=== PATIENT | male | born 1950 | race African-American/Black ===

== ENCOUNTER 2020-09-07 12:58 | Inpatient (IN) ==
[2020-09-07 14:51] LABS: Basophils # 0.1 10*3/uL (0.0-0.2); Basophils % 0.5 % (0.0-0.8); Eosinophils # 0.4 10*3/uL (0.0-0.87); Eosinophils % 1.8 % (0.00-10.9); Hematocrit 26.2 VOL% (42.0-52.0); Immature Granulocytes % 0.9 %; Immature Granulocytes Absolute 0.18 #; Lymphocytes # 2.9 10*3/uL (1.4-4.0); Lymphocytes % 14.5 % (21.2-54.2); Mean Corpuscular HGB Conc 30.5 GM/DL (32-36); Mean Corpuscular Volume 85.3 FL (87-102); Mean Platelet Volume 9.6 FL (9.6-12.0); Monocytes % 10.9 % (1.7-12.7); Neutrophils % 71.4 % (38.7-73.9); Platelet Count 497 T/CUMM (130-400); Red Blood Count 3.07 MC/CUMM (3.8-5.5); Red Cell Distribution Width 21.7 % (9.3-17.3); White Blood Count 19.8 T/CUMM (4-12)
[2020-09-07 14:58] LABS: Bacteria,Urine Many /HPF (Few); Bilirubin,Urine Negative (Negative); Blood, Urine Large mg/dL (Negative); Glucose,Urine (UA) 150 mg/dL (Negative); Ketones,Urine Negative (Negative); Mucus,Urine Many /LPF (Occasional); Nitrite,Urine Negative (Negative); Protein,Urine 100 MG/DL; RBC,Urine 68 /HPF (0-4); Urine Appearance CLOUDY (Clear); Urine Color Red (Yellow); Urine Specific Gravity 1.009 (1.001-1.035); Urine Urobilinogen < 2.0 EU/DL (0.2-1.0); WBC,Urine 390 /HPF (0-6)
[2020-09-07 15:00] LABS: PT Patient Result 10.5 SECS (9.8-11.9)
[2020-09-07] MEDS ORDERED: cefTRIAXone 1,000 MG in SODIUM CHLORIDE 0.9% 100 ML IV STA (15:09)
[2020-09-07 15:10] LABS: Alanine Aminotransferase 19 U/L (16-61); Albumin 2.5 G/DL (3.4-5.0); Alkaline Phosphatase 106 U/L (45-117); Aspartate Amino Transferase 16 U/L (0-37); Bilirubin,Total < 0.39 MG/DL (0.2-1.0); Blood Urea Nitrogen 18 MG/DL (7-18); Calcium 8.2 MG/DL (8.5-10.1); Carbon Dioxide 27 MMOL/L (21-32); Estimated Glom Filtration Rate 97 ML/MIN; Glucose 167 MG/DL (74-106); Osmolality,Calculated 280.7 MOS/KG (273-304); Potassium 4.3 MMOL/L (3.5-5.1); Sodium 138 MMOL/L (136-145); Total Protein 7.3 G/DL (6.4-8.3)
[2020-09-07 15:17] LABS: Anisocytosis 1+; Hypochromasia 1+; Lymphocytes 18 % (20-55); Platelet Estimate Adequate; Segmented Neutrophils 75 % (50-85); Total Cells Counted 100
[2020-09-07] MEDS ORDERED: SODIUM CHLORIDE 0.9% 1,350 ML IV ONE (15:29)
[2020-09-07] MEDS ORDERED: PIPERACILLIN/TAZOBACTAM 3,375 MG VIAL IV ONE (15:40)
[2020-09-07] MEDS ORDERED: SODIUM CHLORIDE 0.9% 100 ML IV ONE (15:40)
[2020-09-07] MEDS ORDERED: ACETAMINOPHEN 325 MG TABLET PO PRN ×2 (15:43)
[2020-09-07] MEDS ORDERED: LACTULOSE 20 GM/30 ML UDCUP PO PRN (15:43)
[2020-09-07] MEDS ORDERED: ONDANSETRON 4 MG/2 ML VIAL IV PRN (15:43)
[2020-09-07] MEDS ORDERED: SIMETHICONE CHEW 125 MG TABLET PO PRN (15:43)
[2020-09-07] MEDS ORDERED: hydrALAZINE 20 MG/1 ML VIAL IV PRN (15:43)
[2020-09-07] MEDS ORDERED: NICOTINE 21 MG/24 HR PATCH TRANSDERM PRN (15:43)
[2020-09-07] MEDS ORDERED: GLUCAGON 1 MG VIAL IM PRN ×2 (15:43→16:10)
[2020-09-07] MEDS ORDERED: ZALEPLON 5 MG CAPSULE PO PRN (15:43)
[2020-09-07] MEDS ORDERED: traZODone 50 MG TABLET PO PRN (15:43)
[2020-09-07] MEDS ORDERED: BISACODYL 5 MG TABLET PO PRN (15:43)
[2020-09-07] MEDS ORDERED: diphenhydrAMINE CAP 25 MG CAPSULE PO PRN (15:43)
[2020-09-07] MEDS ORDERED: MAGNESIUM SULF RIDER 4 GM in PREMIX 1 EACH IV PRN (15:43)
[2020-09-07] MEDS ORDERED: DOCUSATE SODIUM 100 MG CAPSULE PO PRN (15:43)
[2020-09-07] MEDS ORDERED: CALCIUM CARBONATE CHEW 500 MG TABLET PO PRN (15:43)
[2020-09-07] MEDS ORDERED: guaiFENesin/DM ER 600-30 MG TABLET PO PRN (15:43)
[2020-09-07] MEDS ORDERED: ALUMINUM/MAGNES/SIMETH MAX STR 30 ML UDCUP PO PRN (15:43)
[2020-09-07] MEDS ORDERED: MAGNESIUM SULF RIDER 2 GM in PREMIX 1 EACH IV PRN (15:43)
[2020-09-07] MEDS ORDERED: MORPHINE 4 MG/1 ML VIAL IV PRN (15:43)
[2020-09-07] MEDS ORDERED: DEXTROSE 50% 25 GM/50 ML VIAL IV PRN ×2 (15:43→16:10)
[2020-09-07 15:50] LABS: Carcinoembryonic Antigen < 0.5 NG/ML (0.0-5.0); Prostate Specific Antigen Diag 3.8 NG/ML (0-4)
[2020-09-07] MEDS: PIPERACILLIN/TAZOBACTAM 3,375 MG in SODIUM CHLORIDE 0.9% 100 ML IV SCH ×2 (15:56→23:27)
[2020-09-07 16:13] LABS: % Iron Saturation 7.7 % (18-50); Ferritin 42.3 ng/ml (26-388)
[2020-09-07 16:17] LABS: Barbiturates Screen,Urine Negative (Negative); Benzodiazepines Screen,Urine Negative (Negative); Cannabinoid Screen,Urine Negative (Negative); Opiate Screen,Urine Negative (Negative); Phencyclidine Screen,Urine Negative (Negative)
[2020-09-07 16:22] LABS: Folate 13.3 NG/ML (5.4-24.0)
[2020-09-07] MEDS: SODIUM CHLORIDE 0.9% 1,000 ML IV SCH (23:27)
[2020-09-08 06:12] LABS: Albumin 1.9 G/DL (3.4-5.0); Bilirubin,Total 0.4 MG/DL (0.2-1.0); Calcium 7.8 MG/DL (8.5-10.1); Potassium 3.9 MMOL/L (3.5-5.1); Total Protein 6.6 G/DL (6.4-8.3)
[2020-09-08 06:15] LABS: Risk Ratio 2.09
[2020-09-08] MEDS: INSULIN LISPRO 100 UNIT/ML SUBCUT SCH ×4 (07:27→17:57)
[2020-09-08 08:08] LABS: Basophils # 0.1 10*3/uL (0.0-0.2); Basophils % 0.5 % (0.0-0.8); Eosinophils # 0.1 10*3/uL (0.0-0.87); Eosinophils % 0.5 % (0.00-10.9); Hematocrit 21.8 VOL% (42.0-52.0); Immature Granulocytes % 0.7 %; Immature Granulocytes Absolute 0.15 #; Lymphocytes # 1.9 10*3/uL (1.4-4.0); Lymphocytes % 8.5 % (21.2-54.2); Mean Corpuscular HGB Conc 31.2 GM/DL (32-36); Mean Corpuscular Volume 84.2 FL (87-102); Monocytes % 9.2 % (1.7-12.7); Neutrophils % 80.6 % (38.7-73.9); Platelet Count 439 T/CUMM (130-400); Red Blood Count 2.59 MC/CUMM (3.8-5.5); Red Cell Distribution Width 22.2 % (9.3-17.3)
[2020-09-08 08:09] LABS: Hemoglobin 6.8 GM/DL (14.0-18.0)
[2020-09-08 08:24] LABS: Hypochromasia 2+; Lymphocytes 8 % (20-55); Microcytosis 1+; Platelet Estimate Increased; Segmented Neutrophils 86 % (50-85); Total Cells Counted 100
[2020-09-08] MEDS: PANTOPRAZOLE 40 MG TABLET PO SCH (09:42)
[2020-09-08] MEDS: PIPERACILLIN/TAZOBACTAM 3,375 MG in SODIUM CHLORIDE 0.9% 100 ML IV SCH (11:19)
[2020-09-08] MEDS ORDERED: SODIUM CHLORIDE 0.9% 1,000 ML IV PRN (12:33)
[2020-09-08] MEDS: TAMSULOSIN 0.4 MG CAPSULE PO SCH (20:42)
[2020-09-09] MEDS: INSULIN LISPRO 100 UNIT/ML SUBCUT SCH ×4 (00:48→17:45)
[2020-09-09] MEDS: PIPERACILLIN/TAZOBACTAM 3,375 MG in SODIUM CHLORIDE 0.9% 100 ML IV SCH ×3 (02:39→18:09)
[2020-09-09] MEDS: SODIUM CHLORIDE 0.9% 1,000 ML IV SCH (02:56)
[2020-09-09 03:43] LABS: Hematocrit 25.8 VOL% (42.0-52.0)
[2020-09-09 03:44] LABS: Basophils # 0.1 10*3/uL (0.0-0.2); Basophils % 0.6 % (0.0-0.8); Eosinophils # 0.4 10*3/uL (0.0-0.87); Eosinophils % 2.2 % (0.00-10.9); Hematocrit 26.2 VOL% (42.0-52.0); Immature Granulocytes % 0.7 %; Immature Granulocytes Absolute 0.13 #; Lymphocytes % 15.3 % (21.2-54.2); Mean Corpuscular HGB Conc 31.7 GM/DL (32-36); Mean Corpuscular Volume 84.8 FL (87-102); Mean Platelet Volume 9.1 FL (9.6-12.0); Monocytes % 11.3 % (1.7-12.7); Neutrophils % 69.9 % (38.7-73.9); Platelet Count 423 T/CUMM (130-400); Red Blood Count 3.09 MC/CUMM (3.8-5.5); Red Cell Distribution Width 19.3 % (9.3-17.3); White Blood Count 19.3 T/CUMM (4-12)
[2020-09-09 03:57] LABS: Hemoglobin 8.3 GM/DL (14.0-18.0)
[2020-09-09 03:59] LABS: Hemoglobin 8.3 GM/DL (14.0-18.0)
[2020-09-09 04:09] LABS: Albumin 1.8 G/DL (3.4-5.0); Bilirubin,Total 0.8 MG/DL (0.2-1.0); Calcium 7.6 MG/DL (8.5-10.1); Osmolality,Calculated 286.8 MOS/KG (273-304); Potassium 3.1 MMOL/L (3.5-5.1); Total Protein 6.1 G/DL (6.4-8.3)
[2020-09-09] MEDS ORDERED: cefTRIAXone 1,000 MG in SYRINGE 1 EACH IV ONE (06:00)
[2020-09-09] MEDS: PANTOPRAZOLE 40 MG TABLET PO SCH (10:37)
[2020-09-09] MEDS ORDERED: LIDOCAINE 2% 5 ML VIAL ONE (11:28)
[2020-09-09] MEDS ORDERED: fentaNYL 100 MCG/2 ML VIAL ONE (11:28)
[2020-09-09] MEDS ORDERED: propofoL 200 MG/20 ML VIAL IV ONE (11:28)
[2020-09-09] MEDS ORDERED: NEOMYCIN/POLYMYXIN IRRIG SOLN 1 ML AMP BLADDERIRR ONE ×2 (12:51→13:46)
[2020-09-09] MEDS ORDERED: GENTAMICIN 80 MG/2 ML VIAL ONE (13:45)
[2020-09-09] MEDS ORDERED: cefTRIAXone 1,000 MG VIAL ONE (13:45)
[2020-09-09] MEDS ORDERED: ESMOLOL 100 MG/10 ML VIAL IV ONE (14:19)
[2020-09-09] MEDS ORDERED: SEVOFLURANE 1 UNIT/15 MINUTE INH ONE ×2 (14:20→14:49)
[2020-09-09] MEDS ORDERED: PHENYLEPHRINE 1 MG/10 ML SYRINGE IV ONE (14:20)
[2020-09-09] MEDS: TAMSULOSIN 0.4 MG CAPSULE PO SCH (21:45)
[2020-09-09] MEDS: POTASSIUM CHLORIDE RIDER 10 MEQ in PREMIX 1 EACH IV PRN (23:58)
[2020-09-10] MEDS: INSULIN LISPRO 100 UNIT/ML SUBCUT SCH ×4 (00:08→18:40)
[2020-09-10] MEDS: POTASSIUM CHLORIDE RIDER 10 MEQ in PREMIX 1 EACH IV PRN ×3 (01:19→04:32)
[2020-09-10 05:32] LABS: Basophils # 0.1 10*3/uL (0.0-0.2); Basophils % 0.6 % (0.0-0.8); Eosinophils # 0.4 10*3/uL (0.0-0.87); Eosinophils % 2.1 % (0.00-10.9); Hematocrit 25.3 VOL% (42.0-52.0); Hemoglobin 8.2 GM/DL (14.0-18.0); Immature Granulocytes % 0.7 %; Immature Granulocytes Absolute 0.12 #; Lymphocytes # 1.7 10*3/uL (1.4-4.0); Lymphocytes % 9.8 % (21.2-54.2); Mean Corpuscular HGB Conc 32.4 GM/DL (32-36); Mean Corpuscular Volume 83.8 FL (87-102); Mean Platelet Volume 9.1 FL (9.6-12.0); Monocytes % 10.4 % (1.7-12.7); Neutrophils % 76.4 % (38.7-73.9); Platelet Count 482 T/CUMM (130-400); Red Blood Count 3.02 MC/CUMM (3.8-5.5); Red Cell Distribution Width 19.7 % (9.3-17.3)
[2020-09-10] MEDS: PIPERACILLIN/TAZOBACTAM 3,375 MG in SODIUM CHLORIDE 0.9% 100 ML IV SCH ×3 (05:47→21:08)
[2020-09-10 06:35] LABS: Alanine Aminotransferase 13 U/L (16-61); Albumin 1.7 G/DL (3.4-5.0); Alkaline Phosphatase 84 U/L (45-117); Aspartate Amino Transferase 12 U/L (0-37); Bilirubin,Total < 0.39 MG/DL (0.2-1.0); Blood Urea Nitrogen 13 MG/DL (7-18); Calcium 7.6 MG/DL (8.5-10.1); Carbon Dioxide 23 MMOL/L (21-32); Estimated Glom Filtration Rate 118 ML/MIN; Glucose 144 MG/DL (74-106); Osmolality,Calculated 281.4 MOS/KG (273-304); Potassium 4.2 MMOL/L (3.5-5.1); Sodium 140 MMOL/L (136-145); Total Protein 6.3 G/DL (6.4-8.3)
[2020-09-10] MEDS: PANTOPRAZOLE 40 MG TABLET PO SCH (10:49)
[2020-09-10] MEDS: SODIUM CHLORIDE 0.9% 1,000 ML IV SCH (12:05)
[2020-09-10] MEDS ORDERED: DEXTROSE 50% 25 GM/50 ML VIAL IV PRN (12:11)
[2020-09-10] MEDS ORDERED: TUBERCULIN SKIN TEST 0.1 ML SYRINGE INTRADERM ONE (16:47)
[2020-09-10] MEDS: SKIN HEALING OINT (AQUAPHOR) 50 GM TUBE TOP SCH (19:08)
[2020-09-10] MEDS: TAMSULOSIN 0.4 MG CAPSULE PO SCH (20:57)
[2020-09-11] MEDS: INSULIN LISPRO 100 UNIT/ML SUBCUT SCH ×4 (00:30→18:43)
[2020-09-11 05:20] LABS: Basophils # 0.1 10*3/uL (0.0-0.2); Basophils % 0.7 % (0.0-0.8); Eosinophils # 0.5 10*3/uL (0.0-0.87); Eosinophils % 3.3 % (0.00-10.9); Hemoglobin 7.6 GM/DL (14.0-18.0); Immature Granulocytes % 0.6 %; Immature Granulocytes Absolute 0.09 #; Lymphocytes # 2.5 10*3/uL (1.4-4.0); Lymphocytes % 15.7 % (21.2-54.2); Mean Corpuscular HGB Conc 31.7 GM/DL (32-36); Mean Corpuscular Volume 85.1 FL (87-102); Mean Platelet Volume 9.5 FL (9.6-12.0); Neutrophils % 68.7 % (38.7-73.9); Platelet Count 473 T/CUMM (130-400); Red Blood Count 2.82 MC/CUMM (3.8-5.5); Red Cell Distribution Width 19.6 % (9.3-17.3); White Blood Count 15.9 T/CUMM (4-12)
[2020-09-11] MEDS: PIPERACILLIN/TAZOBACTAM 3,375 MG in SODIUM CHLORIDE 0.9% 100 ML IV SCH ×3 (05:21→21:09)
[2020-09-11 05:48] LABS: Alanine Aminotransferase 11 U/L (16-61); Albumin 1.6 G/DL (3.4-5.0); Alkaline Phosphatase 68 U/L (45-117); Aspartate Amino Transferase 11 U/L (0-37); Bilirubin,Total < 0.39 MG/DL (0.2-1.0); Blood Urea Nitrogen 8 MG/DL (7-18); Calcium 7.8 MG/DL (8.5-10.1); Carbon Dioxide 23 MMOL/L (21-32); Estimated Glom Filtration Rate 118 ML/MIN; Glucose 95 MG/DL (74-106); Osmolality,Calculated 276.4 MOS/KG (273-304); Potassium 3.7 MMOL/L (3.5-5.1); Sodium 140 MMOL/L (136-145)
[2020-09-11] MEDS: PANTOPRAZOLE 40 MG TABLET PO SCH (10:51)
[2020-09-11] MEDS: SKIN HEALING OINT (AQUAPHOR) 50 GM TUBE TOP SCH (10:51)
[2020-09-11] MEDS: TAMSULOSIN 0.4 MG CAPSULE PO SCH (21:09)
[2020-09-12] MEDS: INSULIN LISPRO 100 UNIT/ML SUBCUT SCH ×3 (00:33→11:48)
[2020-09-12] MEDS: SODIUM CHLORIDE 0.9% 1,000 ML IV SCH (03:29)
[2020-09-12] MEDS: PIPERACILLIN/TAZOBACTAM 3,375 MG in SODIUM CHLORIDE 0.9% 100 ML IV SCH ×2 (05:59→14:58)
[2020-09-12] MEDS: PANTOPRAZOLE 40 MG TABLET PO SCH (08:24)
[2020-09-12] MEDS: SKIN HEALING OINT (AQUAPHOR) 50 GM TUBE TOP SCH (08:24)
[2020-09-12 11:43] VITALS: BP 122/77
== END 2020-09-12 15:19 | disposition home or self-care (01) | DRG 668 ==
LOC: N.ED 12:58 → N.EDINP 15:49 → SUATTDRO 15:49 → N.EDINP 18:29 → N.3E 18:38
PROVIDERS: ADMIT Internal Medicine; ATTEND Internal Medicine